=== PATIENT | female | born 1935 | race Caucasian/White ===

== ENCOUNTER 2018-11-03 15:45 | Inpatient (IN) | payer MEDICARE, OTHER ==
[~2018-11-03] VITALS: Ht 160 cm; Wt 64.4 kg
[2018-11-03] MEDS ORDERED: clonazePAM 0.5 MG TABLET PO PRN (16:30)
[2018-11-03] MEDS ORDERED: MAG HYDROX/AL HYDROX/SIMETH 30 ML UDC PO PRN (16:30)
[2018-11-03] MEDS ORDERED: MAGNESIUM HYDROXIDE 30 ML UDC PO PRN (16:30)
--- NOTE | 2018-11-03 17:41 | NUR ---
Pt admitted to gps placed on a 5150 danger to self plan/attempted to cut her wrist with a knife. pt is under the care of dr. daly and ronal. pt is alert oriented x 3 and ambulatory. she calm and cooperative, depressed with flat affect. vital sign stable. no acute distress noted. skin clear. belongings kept in locker. med reconciled. mrsa swab done. pt oriented to unit, going to room 219B.
--- NOTE | 2018-11-03 19:16 | NUR ---
spoke with medication nurse to reconcile medication. shift superintendent caustic cresylate nurse aware and instructed to call seating captain after medication has been reconciled by med nurse.
[2018-11-03] MEDS ORDERED: CARB-93 PO (19:22)
[2018-11-03] MEDS ORDERED: CRAN1CAP10 PO (19:24)
[2018-11-03] MEDS ORDERED: LACT1CAP57 PO (19:25)
[2018-11-03] MEDS ORDERED: FLUO-119 PO (19:26)
[2018-11-03] MEDS ORDERED: LEVO125T8 PO (19:35)
[2018-11-03] MEDS ORDERED: MIRT15TA7 PO (19:39)
[2018-11-03] MEDS ORDERED: OLAN2.5T3 PO (19:41)
[2018-11-03] MEDS ORDERED: PANT40TA4 PO (19:42)
[2018-11-03] MEDS ORDERED: VENL75CA62 PO (19:43)
[2018-11-03] MEDS ORDERED: SALM50DI IH (19:44)
--- NOTE | 2018-11-03 19:45 | NUR ---
GPS RN NOTES RECEIVED RATNA CAME FROM THE RESTROOM,NEWLY ADMIT BY DAYSHIFT FROM [facility],CUTTING HER LEFT WRIST WITH BLADE.NOTED SITE SUTURED,DRY AND OPEN TO AIR.MONITOR CLOSELY Q 15 MINUTES FOR SI,DEPRESSION AND WILL MANAGE ACCORDINGLY
[2018-11-03] MEDS ORDERED: ATOR20TA PO (19:47)
[2018-11-03] MEDS ORDERED: MONT10TA22 PO (19:49)
[2018-11-03] MEDS ORDERED: ATEN50TA PO (19:50)
[2018-11-03] MEDS ORDERED: FURO20TA4 PO (19:52)
[2018-11-03] MEDS ORDERED: TRAM50TA2 PO (19:53)
[2018-11-03] MEDS ORDERED: DIPH50CA4 PO (19:57)
[2018-11-03] MEDS ORDERED: LOPE2CAP PO (19:59)
[2018-11-03] MEDS ORDERED: VIT1CAPS44 PO (20:00)
[2018-11-03] MEDS ORDERED: CHOL200026 PO (20:01)
[2018-11-03] MEDS ORDERED: VITA40TA PO (20:02)
[2018-11-03 20:09] VITALS: BP 137/74
[2018-11-03] MEDS: TEMAZEPAM 7.5 MG CAPSULE PO PRN (21:07)
--- NOTE | 2018-11-03 21:07 | NUR ---
GPS RN NOTES C/O INSOMNIA,RESTORIL 7.5MG PO GIVEN,AWAITING FOR OTHER MEDS TO BE RECONCILE.
[2018-11-03] MEDS: MONTELUKAST SODIUM (10MG) 10 MG TABLET PO SCH (22:00)
[2018-11-03] MEDS ORDERED: diphenhydrAMINE HCL 50 MG CAPSULE PO PRN (22:00)
[2018-11-03] MEDS ORDERED: TRAMADOL HCL 50 MG TABLET PO PRN (22:00)
[2018-11-03] MEDS ORDERED: ALBUTEROL FS 2.5 MG/3 ML VIAL.NEB NEB PRN (23:00)
[2018-11-04] MEDS: LEVOTHYROXINE SODIUM 125 MCG TABLET PO SCH (06:19)
[2018-11-04] MEDS: PANTOPRAZOLE 40 MG TABLET.DR PO SCH (06:19)
[2018-11-04 07:14] LABS: ALANINE AMINOTRANSFERASE 22 U/L (12-78); ALBUMIN 3.1 g/dL (3.4-5.0); ALKALINE PHOSPHATASE 86 U/L (46-116); ASPARTATE AMINOTRANSFERASE 12 U/L (15-37); BILIRUBIN,TOTAL 0.3 mg/dL (0.2-1.0); CALCIUM, SERUM 8.9 mg/dL (8.5-10.1); CARBON DIOXIDE 29 mmol/L (21-32); CHLORIDE 104 mmol/L (98-107); GLUCOSE 85 mg/dL (74-106); POTASSIUM 3.9 mmol/L (3.5-5.1); SODIUM SERUM 139 mmol/L (136-145); TOTAL PROTEIN, SERUM 6.6 g/dL (6.4-8.2); UREA NITROGEN, BLOOD 16 mg/dL (7-18)
[2018-11-04 07:17] LABS: CHOLESTEROL 126 mg/dL (<200); HDL CHOLESTEROL 50 mg/dL (40-60); LDL 66 mg/dL (0-99); TRIGLYCERIDES 86 mg/dL (30-150)
[2018-11-04 08:00] VITALS: BP 148/68
[2018-11-04] MEDS: LACTOBACILLUS RHAMNOSUS GG 1 EACH CAP.SPRINK PO SCH (08:40)
[2018-11-04] MEDS: ATENOLOL 50 MG TABLET PO SCH (08:40)
[2018-11-04] MEDS: CARBIDOPA/LEVODOPA 25/100 MG 1 UDTAB PO SCH ×3 (08:40→17:31)
[2018-11-04] MEDS: ACETAMINOPHEN 325 MG TABLET PO PRN (08:40)
[2018-11-04] MEDS ORDERED: SALMETEROL XINAFOATE 1 DISK DISK IH SCH (09:00)
[2018-11-04] MEDS ORDERED: Medication Not On Formulary EA (Vitamin K2 100 MCG) PO SCH (09:00)
[2018-11-04] MEDS ORDERED: CRANBERRY PO SCH (09:00)
[2018-11-04] MEDS ORDERED: [UNRECOGNIZED DRUG - OTHER] PO SCH (09:00)
[2018-11-04] MEDS ORDERED: ASCORBIC ACID PO SCH (09:00)
--- NOTE | 2018-11-04 10:08 | NUR ---
Eva from [facility] [phone] called the SW and stated that the pt cannot return to their facility and stated that the family has already been informed.
--- NOTE | 2018-11-04 10:54 | NUR ---
RN GPS NOTES RECEIVED PATIENT IN BED A/O X3 NO SIGNS OR SYMPTOMS OF RESPIRATORY DISTRESS OR ACUTE PAIN.C/O HEADACHE . PATIENT MED COMPLIANT ANXIOUS AND NERVOUS. PATIENT DENIES ANY SUICIDAL IDEATIONS OR HOMICIDAL IDEATIONS AT THIS TIME. APPETITE GOOD. NO N/V/D NOTED. PATIENT EDUCATED ON THE USE OF THE CALL DURAN.SAFETY PRECAUTIONS IN PLACE PATIENT SIDE RAILS UP X2 FOR SAFETY , BED IN LOW AND LOCKED POSITION WILL CONT TO MONITOR ACCORDINGLY
[2018-11-04] MEDS: MULTIVITAMIN/LUTEIN/MINERALS 1 TAB PO SCH (12:50)
[2018-11-04] MEDS: CHOLECALCIFEROL 1,000 UNIT TABLET (VIT D3) PO SCH (12:51)
--- NOTE | 2018-11-04 14:13 | NUR ---
RN GPS NOTES SPOKE WITH DR FARRELL IN REGARDS TO PATIENT REDNESS AROUND SUTURE SITE. PATIENT SAYS SHE HAS HAD A REACTION TO LIDOCAINE IN THE PAST ORDER FOR BENADRYL 25 MG PO ONE TIME. PHOTO TAKEN AND PLACED IN CHART.
[2018-11-04] MEDS ORDERED: diphenhydrAMINE HCL 25 MG CAPSULE PO ONE (14:30)
[2018-11-04 16:00] VITALS: BP 147/71
[2018-11-04] MEDS ORDERED: MIRTAZAPINE 15 MG TABLET PO SCH (18:00)
[2018-11-04] MEDS ORDERED: OLANZAPINE 2.5 MG TABLET PO SCH (18:00)
[2018-11-04] MEDS: Fluoxetine 10 mg capsule PO SCH (18:16)
[2018-11-04] MEDS: MIRTAZAPINE 15 MG TABLET PO SCH (18:16)
[2018-11-04] MEDS: OLANZAPINE 2.5 MG TABLET PO SCH (18:16)
[2018-11-04 20:00] VITALS: BP 147/75
[2018-11-04] MEDS: ATORVASTATIN 10 MG TABLET PO SCH (21:47)
[2018-11-04] MEDS: TEMAZEPAM 7.5 MG CAPSULE PO PRN (21:47)
[2018-11-04] MEDS: MONTELUKAST SODIUM (10MG) 10 MG TABLET PO SCH (22:13)
[2018-11-05 08:00] VITALS: BP 132/56
[2018-11-05] MEDS: Fluoxetine 10 mg capsule PO SCH (08:27)
[2018-11-05] MEDS: LEVOTHYROXINE SODIUM 125 MCG TABLET PO SCH (08:27)
[2018-11-05] MEDS: LACTOBACILLUS RHAMNOSUS GG 1 EACH CAP.SPRINK PO SCH (08:27)
[2018-11-05] MEDS: PANTOPRAZOLE 40 MG TABLET.DR PO SCH (08:30)
[2018-11-05] MEDS: ATENOLOL 50 MG TABLET PO SCH (08:31)
[2018-11-05] MEDS: CARBIDOPA/LEVODOPA 25/100 MG 1 UDTAB PO SCH ×3 (08:31→16:22)
[2018-11-05] MEDS: MULTIVITAMIN/LUTEIN/MINERALS 1 TAB PO SCH (08:31)
[2018-11-05] MEDS: CHOLECALCIFEROL 1,000 UNIT TABLET (VIT D3) PO SCH (08:32)
--- NOTE | 2018-11-05 10:35 | NUR ---
SW called the pt's daughter, Marce ([phone]), and discussed the pts treatment and initial discharge plan. SW stated that the pt cannot return to [facility] and the pts daughter stated that they are receiving legal director regarding how the pt interferes with her husbands care and that placement is uncertain right now. AYE stated that she would attempt to find placement through a placement agency.
--- NOTE | 2018-11-05 10:36 | NUR ---
Initial Discharge Plan: Pt currently resides at [facility] located at [id number] [place] [address], [address] [address]; ([phone]). Per pt, she would like to return but the facility is not taking her back due to the attempt that was made. AYE will work with the pt and the MD regarding appropriate discharge planning. SW will form a safe and proper discharge plan.
--- NOTE | 2018-11-05 10:37 | NUR ---
Crescencio from [facility] was contacted and she stated that they are aware of this pts case and they are working on placement.
[2018-11-05 16:00] VITALS: BP 128/54
[2018-11-05] MEDS: LOPERAMIDE HCL (2 MG CAP) 2 MG CAPSULE PO PRN (16:22)
[2018-11-05] MEDS: QUETIAPINE FUMARATE 25 MG TABLET PO SCH (16:24)
[2018-11-05] MEDS: MIRTAZAPINE 15 MG TABLET PO SCH (17:14)
[2018-11-05] MEDS: OLANZAPINE 2.5 MG TABLET PO SCH (17:14)
[2018-11-05 20:09] VITALS: BP 155/71
[2018-11-05 20:27] VITALS: BP 136/68
[2018-11-05] MEDS: ATORVASTATIN 10 MG TABLET PO SCH (20:54)
[2018-11-05] MEDS: MONTELUKAST SODIUM (10MG) 10 MG TABLET PO SCH (20:54)
[2018-11-05] MEDS: TEMAZEPAM 7.5 MG CAPSULE PO PRN (20:54)
[2018-11-06] MEDS: PANTOPRAZOLE 40 MG TABLET.DR PO SCH (07:37)
[2018-11-06] MEDS: LEVOTHYROXINE SODIUM 125 MCG TABLET PO SCH (07:37)
[2018-11-06 08:00] VITALS: BP 131/67
[2018-11-06] MEDS: Fluoxetine 10 mg capsule PO SCH (09:00)
[2018-11-06] MEDS: CARBIDOPA/LEVODOPA 25/100 MG 1 UDTAB PO SCH ×3 (09:00→16:14)
[2018-11-06] MEDS: QUETIAPINE FUMARATE 25 MG TABLET PO SCH (09:00)
[2018-11-06] MEDS: LACTOBACILLUS RHAMNOSUS GG 1 EACH CAP.SPRINK PO SCH (09:00)
[2018-11-06] MEDS: CHOLECALCIFEROL 1,000 UNIT TABLET (VIT D3) PO SCH (09:00)
[2018-11-06] MEDS: ATENOLOL 50 MG TABLET PO SCH (09:00)
[2018-11-06] MEDS: MULTIVITAMIN/LUTEIN/MINERALS 1 TAB PO SCH (09:01)
[2018-11-06] MEDS: ACETAMINOPHEN 325 MG TABLET PO PRN (09:37)
--- NOTE | 2018-11-06 11:10 | NUR ---
GPS RN NOTE: DR FARRELL NOTIFIED PT LEFT WRIST REDNESS WARM TO TOUCH, PT WAS SEEN BY MD JUAN Mondragon. ORDER KEFLEX 500 MG PO BID FOR 7 DAYS OPRDER PLACED AND CARED OUT
[2018-11-06 16:00] VITALS: BP 158/62
[2018-11-06] MEDS: CEPHALEXIN MONOHYDRATE 250 MG CAPSULE PO SCH (16:14)
[2018-11-06] MEDS: OLANZAPINE 2.5 MG TABLET PO SCH (16:14)
[2018-11-06] MEDS: MIRTAZAPINE 15 MG TABLET PO SCH (16:14)
[2018-11-06] MEDS ORDERED: OLANZAPINE 2.5 MG TABLET PO SCH (17:00)
--- NOTE | 2018-11-06 19:49 | NUR ---
PAGED AND SPOKE TO DR. MULLIGAN REGARDING THE RESULT OF CT SCAN WITHOUT NO NEW ORDER. WILL CONTINUE TO MONITOR.
[2018-11-06 20:09] VITALS: BP 150/72
[2018-11-06] MEDS: MONTELUKAST SODIUM (10MG) 10 MG TABLET PO SCH (21:21)
[2018-11-06] MEDS: ATORVASTATIN 10 MG TABLET PO SCH (21:21)
[2018-11-07] MEDS: TEMAZEPAM 7.5 MG CAPSULE PO PRN ×2 (01:45→21:02)
[2018-11-07] MEDS: PANTOPRAZOLE 40 MG TABLET.DR PO SCH (07:46)
[2018-11-07] MEDS: LEVOTHYROXINE SODIUM 125 MCG TABLET PO SCH (07:46)
[2018-11-07 08:00] VITALS: BP 136/93
[2018-11-07] MEDS: CEPHALEXIN MONOHYDRATE 250 MG CAPSULE PO SCH ×2 (09:09→17:52)
[2018-11-07] MEDS: CARBIDOPA/LEVODOPA 25/100 MG 1 UDTAB PO SCH ×3 (09:09→17:52)
[2018-11-07] MEDS: LACTOBACILLUS RHAMNOSUS GG 1 EACH CAP.SPRINK PO SCH (09:09)
[2018-11-07] MEDS: MULTIVITAMIN/LUTEIN/MINERALS 1 TAB PO SCH (09:09)
[2018-11-07] MEDS: OLANZAPINE 2.5 MG TABLET PO SCH ×2 (09:09→17:52)
[2018-11-07] MEDS: Fluoxetine 10 mg capsule PO SCH (09:09)
[2018-11-07] MEDS: ATENOLOL 50 MG TABLET PO SCH (09:10)
[2018-11-07] MEDS: CHOLECALCIFEROL 1,000 UNIT TABLET (VIT D3) PO SCH (09:20)
[2018-11-07] MEDS: ACETAMINOPHEN 325 MG TABLET PO PRN (10:43)
[2018-11-07] MEDS: LOPERAMIDE HCL (2 MG CAP) 2 MG CAPSULE PO PRN (14:17)
[2018-11-07 16:00] VITALS: BP 124/62
[2018-11-07] MEDS: MIRTAZAPINE 15 MG TABLET PO SCH (17:52)
[2018-11-07 20:26] VITALS: BP 147/61
[2018-11-07] MEDS: MONTELUKAST SODIUM (10MG) 10 MG TABLET PO SCH (21:02)
[2018-11-07] MEDS: ATORVASTATIN 10 MG TABLET PO SCH (21:02)
[2018-11-08 08:00] VITALS: BP 145/67
[2018-11-08] MEDS: CARBIDOPA/LEVODOPA 25/100 MG 1 UDTAB PO SCH ×3 (08:44→17:55)
[2018-11-08] MEDS: CHOLECALCIFEROL 1,000 UNIT TABLET (VIT D3) PO SCH (08:46)
[2018-11-08] MEDS: Fluoxetine 10 mg capsule PO SCH (08:46)
[2018-11-08] MEDS: ATENOLOL 50 MG TABLET PO SCH (08:47)
[2018-11-08] MEDS: FUROSEMIDE 20 MG TABLET PO PRN (08:48)
[2018-11-08] MEDS: CEPHALEXIN MONOHYDRATE 250 MG CAPSULE PO SCH ×2 (08:48→17:54)
[2018-11-08] MEDS: PANTOPRAZOLE 40 MG TABLET.DR PO SCH (08:53)
[2018-11-08] MEDS: MULTIVITAMIN/LUTEIN/MINERALS 1 TAB PO SCH (08:53)
[2018-11-08] MEDS: LEVOTHYROXINE SODIUM 125 MCG TABLET PO SCH (08:53)
[2018-11-08] MEDS: LACTOBACILLUS RHAMNOSUS GG 1 EACH CAP.SPRINK PO SCH (08:53)
[2018-11-08] MEDS: OLANZAPINE 2.5 MG TABLET PO SCH ×2 (13:14→17:54)
[2018-11-08 16:00] VITALS: BP 144/73
--- NOTE | 2018-11-08 16:10 | NUR ---
AYE called the pt's daughter, Marce ([phone]), and informed her that the placement agency has been contacted and is currently working on finding a board and care for the pt by the end of this week.
[2018-11-08] MEDS: MIRTAZAPINE 15 MG TABLET PO SCH (18:09)
[2018-11-08 20:19] VITALS: BP 152/62
[2018-11-08] MEDS: ATORVASTATIN 10 MG TABLET PO SCH (21:25)
[2018-11-08] MEDS: MONTELUKAST SODIUM (10MG) 10 MG TABLET PO SCH (21:25)
[2018-11-08] MEDS: TEMAZEPAM 7.5 MG CAPSULE PO PRN (21:25)
[2018-11-09] MEDS: ACETAMINOPHEN 325 MG TABLET PO PRN (00:44)
[2018-11-09] MEDS: LEVOTHYROXINE SODIUM 125 MCG TABLET PO SCH (06:21)
[2018-11-09] MEDS: PANTOPRAZOLE 40 MG TABLET.DR PO SCH (06:21)
[2018-11-09 08:00] VITALS: BP 154/67
[2018-11-09] MEDS: LACTOBACILLUS RHAMNOSUS GG 1 EACH CAP.SPRINK PO SCH (08:30)
[2018-11-09] MEDS: CHOLECALCIFEROL 1,000 UNIT TABLET (VIT D3) PO SCH (08:30)
[2018-11-09] MEDS: FUROSEMIDE 20 MG TABLET PO PRN (08:30)
[2018-11-09] MEDS: MULTIVITAMIN/LUTEIN/MINERALS 1 TAB PO SCH (08:30)
[2018-11-09] MEDS: Fluoxetine 10 mg capsule PO SCH (08:31)
[2018-11-09] MEDS: CARBIDOPA/LEVODOPA 25/100 MG 1 UDTAB PO SCH ×3 (08:31→16:56)
[2018-11-09] MEDS: CEPHALEXIN MONOHYDRATE 250 MG CAPSULE PO SCH ×2 (08:31→16:55)
[2018-11-09] MEDS: ATENOLOL 50 MG TABLET PO SCH (08:31)
[2018-11-09] MEDS: OLANZAPINE 2.5 MG TABLET PO SCH ×2 (08:31→16:55)
--- NOTE | 2018-11-09 12:31 | NUR ---
WOUND CARE CONSULT: PT PRESENTS WITH CLOSED LACERATION TO LEFT WRIST WITH SUTURES, NO DRAINAGE, NO TENDERNESS OR REDNESS. RECOMMEND PROTECT WITH DRY BANDAGE DAILY. DISCUSSED WITH NURSING STAFF. PT TO FOLLOW UP WITH MD. PT IS AMBULATORY AND CONTINENT. WILL SEE PRN.
--- NOTE | 2018-11-09 14:20 | NUR ---
SW called the pt's daughter, Marce ([phone]), to return her voicemail. It was discussed that the pts family are going to be speaking to the pt today regarding placement and the SW informed her that she had spoken to the pt earlier today and she accepted the idea of being from her for a period of time to focus on herself. Pt's daughter stated that she was grateful for the conversation with the pt and that they are continuing to look at [facility].
[2018-11-09 16:00] VITALS: BP 141/73
[2018-11-09] MEDS: MIRTAZAPINE 15 MG TABLET PO SCH (17:05)
[2018-11-09 20:41] VITALS: BP 172/74
[2018-11-09] MEDS: MONTELUKAST SODIUM (10MG) 10 MG TABLET PO SCH (21:15)
[2018-11-09] MEDS: ATORVASTATIN 10 MG TABLET PO SCH (21:16)
[2018-11-09] MEDS: TEMAZEPAM 7.5 MG CAPSULE PO PRN (21:22)
[2018-11-09 22:00] VITALS: BP 154/65
[2018-11-10] MEDS: LEVOTHYROXINE SODIUM 125 MCG TABLET PO SCH (06:11)
[2018-11-10] MEDS: PANTOPRAZOLE 40 MG TABLET.DR PO SCH (06:11)
[2018-11-10 06:32] LABS: BASOPHILS # (AUTO) 0.1 /CMM (0.0-0.2); BASOPHILS % (AUTO) 1.1 % (0.0-2.0); EOSINOPHILS % (AUTO) 4.5 % (0.0-6.0); HEMATOCRIT 37 % (33-45); HEMOGLOBIN 12.5 g/dL (11.5-14.8); LYMPHOCYTES # (AUTO) 1.5 /CMM (0.8-4.8); MEAN CORPUSCULAR HGB CONC 34 g/dl (31.0-36.0); MEAN CORPUSCULAR VOLUME 91 fL (82-100); MONOCYTES # (AUTO) 0.5 /CMM (0.1-1.30); MONOCYTES % (AUTO) 8.3 % (2.0-12.0); NEUTROPHILS # (AUTO) 4.1 /CMM (1.8-8.9); NEUTROPHILS % (AUTO) 63.1 % (43.0-81.0); PLATELET COUNT (AUTO) 296 /CMM (150-450); RED BLOOD CELL COUNT(AUTO) 4.11 MIL/uL (4.0-5.2); WHITE BLOOD COUNT (AUTO) 6.5 K/uL (4.3-11.0)
[2018-11-10 06:40] LABS: CALCIUM, SERUM 8.8 mg/dL (8.5-10.1); CARBON DIOXIDE 29 mmol/L (21-32); CHLORIDE 105 mmol/L (98-107); CREATININE 1.1 mg/dL (0.6-1.3); GLUCOSE 94 mg/dL (74-106); MAGNESIUM 2.3 mg/dL (1.8-2.4); PHOSPHORUS 3.5 mg/dL (2.5-4.9); POTASSIUM 4.5 mmol/L (3.5-5.1); SODIUM SERUM 141 mmol/L (136-145); UREA NITROGEN, BLOOD 22 mg/dL (7-18)
[2018-11-10 08:00] VITALS: BP 148/70
[2018-11-10] MEDS: OLANZAPINE 2.5 MG TABLET PO SCH ×2 (08:07→17:20)
[2018-11-10] MEDS: MULTIVITAMIN/LUTEIN/MINERALS 1 TAB PO SCH (08:07)
[2018-11-10] MEDS: CHOLECALCIFEROL 1,000 UNIT TABLET (VIT D3) PO SCH (08:07)
[2018-11-10] MEDS: CEPHALEXIN MONOHYDRATE 250 MG CAPSULE PO SCH ×2 (08:07→17:21)
[2018-11-10] MEDS: FUROSEMIDE 20 MG TABLET PO PRN (08:07)
[2018-11-10] MEDS: LACTOBACILLUS RHAMNOSUS GG 1 EACH CAP.SPRINK PO SCH (08:07)
[2018-11-10] MEDS: CARBIDOPA/LEVODOPA 25/100 MG 1 UDTAB PO SCH ×3 (08:07→17:20)
[2018-11-10] MEDS: ATENOLOL 50 MG TABLET PO SCH (08:07)
[2018-11-10] MEDS: Fluoxetine 10 mg capsule PO SCH (08:10)
[2018-11-10] MEDS: ACETAMINOPHEN 325 MG TABLET PO PRN (09:00)
--- NOTE | 2018-11-10 14:30 | NUR ---
Pts daughter, Marce ([phone]), called the SW and stated that they are interested in a Board and Care that is willing to accept the pt but a [facility]. She also stated that the pt called her and told her that she was going to be discharged the following day and informed the SW that the placement will not be ready until Thursday at the earliest. SW stated that she would inform the pts psychiatrist.
--- NOTE | 2018-11-10 14:52 | NUR ---
Goal: Patient will attend group being held today from 11am -11:45 in the activities room and participate and/or actively listen to peers and be respectful. Intervention: SW facilitated group session with patients regarding the goal or positive outcome/s pt. would like to see happen as a result of their stay in [facility]. SW encouraged and supported patient�s goals and normalized the difficulties that come with setting healthy boundaries and change of environment. Response: Patient was agreeable to participating in group. Patient was alert and oriented and presented slightly reserved. Patient expressed already working on a new place of residence that will benefit her mental health as well as practicing health boundary setting with relationships. Patient demonstrated being insightful and with positive perspective toward her future. Patient remained calm and cooperative throughout group session. Plan: Patient will be invited to attend next mental health social worker group held.
[2018-11-10 16:00] VITALS: BP 126/62
[2018-11-10] MEDS: MIRTAZAPINE 15 MG TABLET PO SCH (17:20)
[2018-11-10 19:50] VITALS: BP 167/75
[2018-11-10 21:00] VITALS: BP 130/67
[2018-11-10] MEDS: MONTELUKAST SODIUM (10MG) 10 MG TABLET PO SCH (21:28)
[2018-11-10] MEDS: ATORVASTATIN 10 MG TABLET PO SCH (21:29)
[2018-11-10] MEDS: TEMAZEPAM 7.5 MG CAPSULE PO PRN (21:30)
[2018-11-11] MEDS: PANTOPRAZOLE 40 MG TABLET.DR PO SCH (06:07)
[2018-11-11] MEDS: LEVOTHYROXINE SODIUM 125 MCG TABLET PO SCH (06:07)
[2018-11-11 08:00] VITALS: BP 145/64
[2018-11-11] MEDS: LACTOBACILLUS RHAMNOSUS GG 1 EACH CAP.SPRINK PO SCH (08:12)
[2018-11-11] MEDS: Fluoxetine 10 mg capsule PO SCH (08:13)
[2018-11-11] MEDS: FUROSEMIDE 20 MG TABLET PO PRN (08:13)
[2018-11-11] MEDS: CEPHALEXIN MONOHYDRATE 250 MG CAPSULE PO SCH ×2 (08:13→16:27)
[2018-11-11] MEDS: OLANZAPINE 2.5 MG TABLET PO SCH ×2 (08:13→16:26)
[2018-11-11] MEDS: MULTIVITAMIN/LUTEIN/MINERALS 1 TAB PO SCH (08:13)
[2018-11-11] MEDS: CARBIDOPA/LEVODOPA 25/100 MG 1 UDTAB PO SCH ×3 (08:13→16:26)
[2018-11-11] MEDS: CHOLECALCIFEROL 1,000 UNIT TABLET (VIT D3) PO SCH (08:13)
[2018-11-11] MEDS: ATENOLOL 50 MG TABLET PO SCH (08:14)
[2018-11-11] MEDS: LOPERAMIDE HCL (2 MG CAP) 2 MG CAPSULE PO PRN (08:49)
[2018-11-11 16:34] VITALS: BP 133/57
[2018-11-11] MEDS: MIRTAZAPINE 15 MG TABLET PO SCH (17:17)
[2018-11-11 20:00] VITALS: BP 130/58
[2018-11-11] MEDS: ATORVASTATIN 10 MG TABLET PO SCH (21:11)
[2018-11-11] MEDS: MONTELUKAST SODIUM (10MG) 10 MG TABLET PO SCH (21:11)
[2018-11-11] MEDS: TEMAZEPAM 7.5 MG CAPSULE PO PRN (21:34)
[2018-11-12] MEDS: LEVOTHYROXINE SODIUM 125 MCG TABLET PO SCH (06:07)
[2018-11-12] MEDS: PANTOPRAZOLE 40 MG TABLET.DR PO SCH (06:07)
[2018-11-12 08:00] VITALS: BP 153/64
--- NOTE | 2018-11-12 08:31 | NUR ---
AYE faxed a [facility] Report to [facility] with attention to Anna to the fax number: [phone].
[2018-11-12] MEDS: LACTOBACILLUS RHAMNOSUS GG 1 EACH CAP.SPRINK PO SCH (08:57)
[2018-11-12] MEDS: MULTIVITAMIN/LUTEIN/MINERALS 1 TAB PO SCH (08:57)
[2018-11-12] MEDS: CHOLECALCIFEROL 1,000 UNIT TABLET (VIT D3) PO SCH (08:57)
[2018-11-12 08:58] VITALS: BP 153/64
[2018-11-12] MEDS: Fluoxetine 10 mg capsule PO SCH (08:58)
[2018-11-12] MEDS: CEPHALEXIN MONOHYDRATE 250 MG CAPSULE PO SCH (08:58)
[2018-11-12] MEDS: CARBIDOPA/LEVODOPA 25/100 MG 1 UDTAB PO SCH ×2 (08:58→12:29)
[2018-11-12] MEDS: ATENOLOL 50 MG TABLET PO SCH (08:58)
[2018-11-12] MEDS: OLANZAPINE 2.5 MG TABLET PO SCH (09:03)
--- NOTE | 2018-11-12 10:07 | NUR ---
DR. GOODMAN GAVE AN ORDER TO D/C HOLD AND D[facility] AND TO FOLLOW UP WITH PSYCH AND MEDICAL DOCTORS. PT. WITHOUT DISTRESS, DENIES SUICIDAL AND HOMICIDAL. BELONGINGS READY AND DISCHARGE PAPERS READY.
--- NOTE | 2018-11-12 14:25 | NUR ---
GPS ELEMENTARY SCHOOL BAND DIRECTOR NOTE PT DISCHARGED TO [facility] VIA PRIVATE CAR, ACCOMPANIED BY DAUGHTER DARION IN MEDICALLY STABLE CONDITION. PT IS ALERT AND ORIENTED X4,DENIES CHEST PAIN,SOB, N/V, BREATHING IS EVEN AND UNLABORED ON ROOM AIR. DENIES SUICIDAL IDEATIONS, VERBAL AND AUDITORY HALLUCINATIONS. NO PERIPHERAL IV TO REMOVE PER GPS PROTOCOL. DISCHARGE PAPERWORK INCLUDING PRESCRIPTIONS PROVIDED PER PROTOCOL. WOUND DOCUMENTATION PROVIDED PER PROTOCOL. ADLS AND WOUND CARE PROVIDED ORDERED PRIOR TO D/C. THE NURSE ACCOMPANIED THE PT AND DAUGHTER TO THE MAIN LOBBY WITHOUT INCIDENT.
--- NOTE | 2018-11-12 14:31 | NUR ---
Discharge Note: Pt was discharged to [facility] located at [address] [place] [address]; ([phone]). Pts daughter, Marce ([phone]), picked up the pt around 1:30PM. Upon discharge, the pt appeared to be in a euthymic mood and presented with a distressed affect. Pt denied both suicidal and homicidal ideation and as well as auditory and visual hallucinations. Pt will be under the care of psychiatrist, Dr. Esa Bellamy, located at [address], [place] [address]; ; and a fax was sent to: [phone]. Appt on 11/18/18 at 9:40AM. Pt will be under the care of her hook and eye attacher, Dr. Larissa Graham, located at [address], [place] [address]; .
== END 2018-11-12 14:25 | disposition home or self-care (01) | DRG 885 ==
LOC: GPS 15:53
PROVIDERS: ADMIT Psychiatry & Neurology Psychiatry; ATTEND Internal Medicine
DX: F33.2 Major depressive disorder, recurrent severe without psychotic features (principal); G91.2 (Idiopathic) normal pressure hydrocephalus; F23 Brief psychotic disorder; L03.114 Cellulitis of left upper limb; E78.5 Hyperlipidemia, unspecified; G20 Parkinson's disease; E03.9 Hypothyroidism, unspecified; G89.29 Other chronic pain; J44.9 Chronic obstructive pulmonary disease, unspecified; K21.9 Gastro-esophageal reflux disease without esophagitis; M19.90 Unspecified osteoarthritis, unspecified site; Z98.2 Presence of cerebrospinal fluid drainage device; F41.9 Anxiety disorder, unspecified; S61.512D Laceration without foreign body of left wrist, subsequent encounter; X78.8XXD Intentional self-harm by other sharp object, subsequent encounter; I10 Essential (primary) hypertension; F02.80 Dementia in other diseases classified elsewhere, unspecified severity, without behavioral disturbance, psychotic disturbance, mood disturbance, and anxiety
CPT/HCPCS: 36415; 70450-TC; 71045-TC; 80048-TC; 80053-TC; 80061-TC; 83735-TC; 84100-TC; 85025-TC; 87081-TC; Q0163